=== PATIENT | female | born 1980 | race Caucasian/White ===

== ENCOUNTER 2020-02-13 08:11 | Day surgery (SDC) | payer BC ==
[2020-02-13] MEDS ORDERED: Sodium Chloride 0.9% 1,000 ML IV SCH (08:45)
[2020-02-13] MEDS ORDERED: Midazolam 1 MG/ML 2 ML SDV ONE (09:07)
[2020-02-13] MEDS ORDERED: fentaNYL 100 MCG/2 ML SDV ONE (09:07)
[2020-02-13] MEDS ORDERED: Propofol 200 MG/20 ML SDV ONE (09:08)
--- NOTE | 2020-02-13 14:45 | OR ---
DATE OF PROCEDURE: 02/13/2020 SURGEON: Kali Christiansen MD PROCEDURE: Colonoscopy. FINDINGS: No significant abnormalities except for possibly very mild inflammation (biopsied in the cecal area and in the rectum). PREOPERATIVE DIAGNOSIS: Irritable bowel/inflammatory bowel disease. POSTOPERATIVE DIAGNOSIS: Irritable bowel/inflammatory bowel disease. COMPLICATIONS: None. COMMUNITY HEALTH EDUCATION COORDINATOR: None. ANESTHESIA: MAC. RISKS: Risks, benefits, alternatives, and limitations including, but not limited to, infection, bleeding, and perforation explained to the patient, who wished to proceed. PROCEDURE IN DETAIL: The patient was placed in left lateral decubitus position. Digital rectal exam was performed without abnormality. Scope was introduced and advanced atraumatically to the ileocecal valve. The scope was brought back through the ascending, transverse, descending colon and retroflexed. No diverticulosis. No gross significant inflammation, possibly some very mild inflammation; therefore, was biopsied using cold biopsy forceps. No abnormalities on retroflex. No polyps. The patient tolerated procedure well. Kali Christiansen MD /[id number]
== END 2020-02-13 11:25 | disposition home or self-care (01) ==
LOC: JP.SDS 08:11
PROVIDERS: ATTEND Surgery
DX: K58.9 Irritable bowel syndrome, unspecified (principal); Z91.040 Latex allergy status
CPT/HCPCS: 45380; 81025; 88305; J2250; J2704; J3010; J7030